=== PATIENT | female | born 2000 | race Two or more races ===

== ENCOUNTER 2022-04-25 10:19 | Emergency (ER) | payer SELFPAY ==
[~2022-04-25] VITALS: Ht 162.6 cm; Wt 64.0 kg
[2022-04-25 10:22] VITALS: BP 131/91
== END 2022-04-25 10:59 | disposition home or self-care (01) ==
LOC: ER 10:30
DX: T43.651A Poisoning by methamphetamines accidental (unintentional), initial encounter (principal); F15.188 Other stimulant abuse with other stimulant-induced disorder; Z91.83 Wandering in diseases classified elsewhere; R03.0 Elevated blood-pressure reading, without diagnosis of hypertension; Y92.017 Garden or yard in single-family (private) house as the place of occurrence of the external cause
CPT/HCPCS: 99283